=== PATIENT | female | born 1970 | race Two or more races ===

== ENCOUNTER 2018-08-17 18:02 | Inpatient (IN) | payer BC ==
[~2018-08-17] VITALS: Ht 160 cm; Wt 53.6 kg
[~2018-08-17 18:02] MED LIST: PAXIL PO
[2018-08-17 20:44] VITALS: BP 97/56; PULSE 68; RESP 18
[2018-08-17] MEDS ORDERED: ACETAMINOPHEN 500 MG TAB PO PRN ×2 (21:30)
[2018-08-17] MEDS ORDERED: ONDANSETRON 4 MG INJ IV PRN (21:30)
[2018-08-17 21:57] VITALS: Ht 160 cm; Wt 53.6 kg
[2018-08-17] MEDS: D5W-0.45 NACL + KCL 20 MEQ 1,000 ML IV SCH (22:20)
[2018-08-17] MEDS ORDERED: IOHEXOL 14.3 MG(I)/ML (ADULT) BTL PO ONE (22:30)
[2018-08-18] MEDS ORDERED: SOD CHLORIDE 0.9% 100 ML ONE (03:47)
[2018-08-18] MEDS ORDERED: IOHEXOL 300MG/ML 150 ML BTL ONE (03:47)
[2018-08-18 07:14] VITALS: BP 103/57; PULSE 87; RESP 18
[2018-08-18] MEDS: D5W-0.45 NACL + KCL 20 MEQ 1,000 ML IV SCH (11:39)
[2018-08-18 13:04] VITALS: BP 107/60; PULSE 74; RESP 18
--- NOTE | 2018-08-18 16:06 | CONS ---
Assessment/Plan Assessment/Plan Hospital Course (Demo Recall) 1. Right lower quadrant abdominal pain. Consultation Date/Type/Reason Admit Date/Time August 17, 2018 at 20:15 Date of Consultation: August 18, 2018 Date/Time of Note DATE: 08/18/18 TIME: 16:05 Past Medical History Home Meds Reported Medications [Paxil] No Conflict Check, PO 09/22/15 Medications Current Medications Ondansetron HCl (Zofran Inj) 4 mg Q6H PRN IV NAUSEA AND/OR VOMITING; Start 08/17/18 at 21:30 Acetaminophen (Tylenol Tab) 500 mg Q6H PRN PO MILD PAIN(1-5)OR ELEVATED TEMP; Start 08/17/18 at 21:30 Acetaminophen (Tylenol Tab) 1,000 mg Q6H PRN PO PAIN LEVEL 6-10; Start 08/17/18 at 21:30 Potassium Chloride/Dextrose/ Sod Cl 1,000 ml @ 75 mls/hr [id number] IV Last administered on 08/18/18at 11:39; Admin Dose 75 MLS/HR; Start 08/17/18 at 21:30 Allergies: Coded Allergies: codeine (Verified Adverse Reaction, Unknown, CONVULSIONS, VOMITING, 09/22/15) hydrocodone (Verified Adverse Reaction, Unknown, CONVULSIONS, VOMITING, 09/22/15) Uncoded Allergies: OPIATES (Adverse Reaction, Unknown, CONVULSIONS, VOMITING, 09/22/15) Social History Smoking Status: Never smoker Exam/Review of Systems Exam Vitals Vital Signs Date Temp Pulse Resp B/P (MAP) Pulse Ox O2 O2 Flow FiO2 Time Delivery Rate 08/18/18 98.6 74 18 107/60 96 13:04 (76) 08/17/18 Room Air 20:44 Intake and Output 08/17/18 08/17/18 08/18/18 1515:00 23:00 07:00 IntakeIntake Total 450 ml 900 ml OutputOutput Total 400 ml BalanceBalance 450 ml 500 ml Results Result Diagram: 08/18/18 0449 08/18/18 0449 Results 24hrs Laboratory Tests Test 08/18/18 00:45 08/18/18 04:49 08/18/18 07:19 Urine Color YELLOW Urine Clarity CLEAR Urine pH 6.0 Urine Specific [place] 1.014 Urine Ketones 2+ H Urine Nitrite NEGATIVE Urine Bilirubin NEGATIVE Urine Urobilinogen NEGATIVE Urine Leukocyte Esterase 1+ H Urine Microscopic RBC 3 Urine Microscopic WBC 4 Urine Squamous Epithelial Cells FEW Urine Mucus FEW A Urine Hemoglobin 1+ H Urine Glucose NEGATIVE Urine Total Protein NEGATIVE Urine Test NEGATIVE White Blood Count 8.1 Red Blood Count 4.00 L Hemoglobin 12.3 Hematocrit 36.5 L Mean Corpuscular Volume 91.3 Mean Corpuscular Hemoglobin 30.8 Mean Corpuscular 33.7 Hemoglobin Concent Red Cell Distribution Width 13.2 Platelet Count 249 Mean Platelet Volume 11.6 H Immature Granulocytes % 0.500 H Neutrophils % 53.0 Lymphocytes % 30.9 Monocytes % 11.5 H Eosinophils % 3.2 Basophils % 0.9 Nucleated Red Blood Cells % 0.0 Immature Granulocytes # 0.040 H Neutrophils # 4.3 Lymphocytes # 2.5 Monocytes # 0.9 Eosinophils # 0.3 Basophils # 0.1 Nucleated Red Blood Cells # 0.0 Erythrocyte Sedimentation Rate 10.0 Sodium Level 139 Potassium Level 3.8 Chloride Level 106 Carbon Dioxide Level 25 Anion Gap 8 Blood Urea Nitrogen 12 Creatinine 0.56 Est Glomerular Filtrat > 60 Rate mL/min Glucose Level 97 Calcium Level 9.2 Total Bilirubin 0.6 Direct Bilirubin 0.00 Indirect Bilirubin 0.6 Aspartate Amino Transf (AST/SGOT) 20 Alanine 32 Aminotransferase (ALT/SGPT) Alkaline Phosphatase 49 C-Reactive Protein < 0.5 Total Protein 6.4 Albumin 3.8 Globulin 2.60 Albumin/Globulin Ratio 1.46 Amylase Level 88 Lipase 38 Lab Scanned Report REFERENCE LAB Medications Medication Current Medications Ondansetron HCl (Zofran Inj) 4 mg Q6H PRN IV NAUSEA AND/OR VOMITING; Start 08/17/18 at 21:30 Acetaminophen (Tylenol Tab) 500 mg Q6H PRN PO MILD PAIN(1-5)OR ELEVATED TEMP; Start 08/17/18 at 21:30 Acetaminophen (Tylenol Tab) 1,000 mg Q6H PRN PO PAIN LEVEL 6-10; Start 08/17/18 at 21:30 Potassium Chloride/Dextrose/ Sod Cl 1,000 ml @ 75 mls/hr [id number] IV Last administered on 08/18/18at 11:39; Admin Dose 75 MLS/HR; Start 08/17/18 at 21:30 JUSTINA CRYSTAL MD August 18, 2018 16:06
== END 2018-08-18 17:50 | disposition home or self-care (01) | DRG 392 ==
LOC: MS1 20:15
PROVIDERS: ADMIT Surgery; ATTEND Surgery
DX: R10.31 Right lower quadrant pain (principal)
CPT/HCPCS: 74177; 80053; 81001; 82150; 83690; 84703; 85025; 85651; 86140; 87086; J3480; Q9967